=== PATIENT | female | born 1950 | race Caucasian/White ===

== ENCOUNTER 2022-06-05 08:16 | Inpatient (IN) ==
[2022-06-05] MEDS ORDERED: SODIUM CHLORIDE 0.9% 1,000 ML IV STA (08:39)
[2022-06-05] MEDS ORDERED: ONDANSETRON 4 MG/2 ML VIAL IV STA (08:59)
[2022-06-05 09:10] LABS: Glucose,Urine (UA) Negative (Negative); Hyaline Casts,Urine 4 /LPF (0-3); Ketones,Urine Negative (Negative); Mucus,Urine Occasional /LPF (Occasional); Nitrite,Urine Negative (Negative); Protein,Urine Negative (Negative); RBC,Urine 5 /HPF (0-4); Squamous Epithelial Cell,Urine Occasional /HPF (0-10); Urine Appearance Clear (Clear); Urine Color Yellow (Yellow); Urine Specific Gravity 1.015 (1.001-1.035); Urine pH 7.5 (4.5-8.0)
[2022-06-05 09:11] LABS: Bilirubin,Urine Negative (Negative); Blood, Urine Negative (Negative); Urine Urobilinogen 0.2 eU/dL (<2.0)
[2022-06-05 09:14] LABS: Basophils % 0.5 % (0.0-0.8); Eosinophils % 0.3 % (0.00-10.9); Hemoglobin 13.8 GM/DL (12.0-16.0); Immature Granulocytes % 0.7 %; Immature Granulocytes Absolute 0.04 #; Lymphocytes # 1.3 10*3/uL (1.4-4.0); Lymphocytes % 22.5 % (21.3-54.2); Mean Corpuscular HGB Conc 36.3 GM/DL (32-36); Mean Corpuscular Volume 81.7 FL (87-102); Mean Platelet Volume 9.3 FL (9.6-12.0); Monocytes # 0.7 10*3/uL (0.11-0.8); Monocytes % 12.2 % (1.7-12.7); Neutrophils % 63.8 % (38.7-73.9); Platelet Count 370 T/CUMM (130-400); Red Blood Count 4.65 MC/CUMM (3.8-5.5); White Blood Count 5.8 T/CUMM (4-12)
[2022-06-05 09:34] LABS: Albumin 4.1 G/DL (3.4-5.0); Bilirubin,Total 0.6 MG/DL (0.20-1.00); Calcium 9.8 MG/DL (8.5-10.1); Osmolality,Calculated 248.9 MOS/KG (273-304); Potassium 3.5 MMOL/L (3.5-5.1); Total Protein 7.6 G/DL (6.4-8.2)
[2022-06-05] MEDS ORDERED: ONDANSETRON 4 MG/2 ML VIAL IV PRN (10:24)
[2022-06-05] MEDS ORDERED: DEXTROSE 10% 250 ML BAG IV PRN (10:24)
[2022-06-05] MEDS ORDERED: GLUCAGON 1 MG VIAL IM PRN (10:24)
[2022-06-05] MEDS ORDERED: ACETAMINOPHEN 325 MG TABLET PO PRN (10:24)
[2022-06-05] MEDS ORDERED: SODIUM CHLORIDE 0.9% 1,000 ML IV SCH (10:30)
[2022-06-05] MEDS ORDERED: LEVOFLOXACIN INJ 500 MG/100 ML PREMIX IV SCH (11:00)
[2022-06-05] MEDS: ENOXAPARIN 30 MG/0.3 ML SYRINGE SUBCUT SCH (11:25)
[2022-06-05] MEDS: CEFEPIME 1,000 MG in SODIUM CHLORIDE 0.9% 100 ML IV SCH ×2 (16:07→23:42)
[2022-06-05] MEDS: MECLIZINE 25 MG TABLET PO SCH (20:50)
[2022-06-05] MEDS: ATORVASTATIN 10 MG TABLET PO SCH (20:50)
[2022-06-05] MEDS: busPIRone 5 MG TABLET PO SCH (20:50)
[2022-06-06] MEDS: CEFEPIME 1,000 MG in SODIUM CHLORIDE 0.9% 100 ML IV SCH (05:56)
[2022-06-06 06:49] LABS: Basophils % 0.6 % (0.0-0.8); Eosinophils # 0.1 10*3/uL (0.0-0.87); Hematocrit 35.1 VOL% (35.7-47.0); Hemoglobin 12.3 GM/DL (12.0-16.0); Immature Granulocytes % 0.2 %; Immature Granulocytes Absolute 0.01 #; Lymphocytes # 1.5 10*3/uL (1.4-4.0); Lymphocytes % 31.2 % (21.3-54.2); Mean Corpuscular Volume 84.8 FL (87-102); Mean Platelet Volume 9.5 FL (9.6-12.0); Monocytes # 0.7 10*3/uL (0.11-0.8); Platelet Count 290 T/CUMM (130-400); Red Blood Count 4.14 MC/CUMM (3.8-5.5); Red Cell Distribution Width 12.3 % (9.3-17.3); White Blood Count 4.8 T/CUMM (4-12)
[2022-06-06 07:16] LABS: Albumin 3.2 G/DL (3.4-5.0); Bilirubin,Total 0.4 MG/DL (0.20-1.00); Calcium 9.2 MG/DL (8.5-10.1); Osmolality,Calculated 263.7 MOS/KG (273-304); Potassium 3.9 MMOL/L (3.5-5.1); Total Protein 6.4 G/DL (6.4-8.2)
[2022-06-06] MEDS ORDERED: LEVOFLOXACIN INJ 500 MG/100 ML PREMIX IV SCH (09:30)
[2022-06-06] MEDS: MECLIZINE 25 MG TABLET PO SCH ×2 (09:43→20:46)
[2022-06-06] MEDS: busPIRone 5 MG TABLET PO SCH ×2 (09:44→20:46)
[2022-06-06] MEDS: amLODIPine 5 MG TABLET PO SCH (09:44)
[2022-06-06] MEDS: ENOXAPARIN 30 MG/0.3 ML SYRINGE SUBCUT SCH (09:45)
[2022-06-06] MEDS: OMEPRAZOLE ODT 20 MG TABLET PO SCH (14:36)
[2022-06-06] MEDS: POLYETHYLENE GLYCOL POWDER 17 GM PACK PO PRN (14:36)
[2022-06-06] MEDS: ATORVASTATIN 10 MG TABLET PO SCH (20:46)
[2022-06-07] MEDS: POLYETHYLENE GLYCOL POWDER 17 GM PACK PO PRN (04:31)
[2022-06-07 04:41] LABS: Basophils # 0.1 10*3/uL (0.0-0.2); Basophils % 1.3 % (0.0-0.8); Eosinophils # 0.1 10*3/uL (0.0-0.87); Eosinophils % 1.7 % (0.00-10.9); Hematocrit 34.5 VOL% (35.7-47.0); Hemoglobin 11.7 GM/DL (12.0-16.0); Immature Granulocytes % 0.4 %; Immature Granulocytes Absolute 0.02 #; Lymphocytes # 1.8 10*3/uL (1.4-4.0); Lymphocytes % 34.5 % (21.3-54.2); Mean Corpuscular HGB Conc 33.9 GM/DL (32-36); Mean Corpuscular Volume 86.7 FL (87-102); Mean Platelet Volume 9.8 FL (9.6-12.0); Monocytes # 0.7 10*3/uL (0.11-0.8); Monocytes % 12.4 % (1.7-12.7); Neutrophils % 49.7 % (38.7-73.9); Platelet Count 307 T/CUMM (130-400); Red Blood Count 3.98 MC/CUMM (3.8-5.5); Red Cell Distribution Width 12.6 % (9.3-17.3); White Blood Count 5.3 T/CUMM (4-12)
[2022-06-07 05:11] LABS: Calcium 9.6 MG/DL (8.5-10.1); Osmolality,Calculated 266.5 MOS/KG (273-304); Potassium 4.9 MMOL/L (3.5-5.1)
[2022-06-07 08:31] VITALS: BP 135/72
[2022-06-07] MEDS: amLODIPine 5 MG TABLET PO SCH (08:33)
[2022-06-07] MEDS: busPIRone 5 MG TABLET PO SCH (08:33)
[2022-06-07] MEDS: OMEPRAZOLE ODT 20 MG TABLET PO SCH (08:33)
[2022-06-07] MEDS: MECLIZINE 25 MG TABLET PO SCH (08:33)
[2022-06-07] MEDS: ENOXAPARIN 30 MG/0.3 ML SYRINGE SUBCUT SCH (08:35)
== END 2022-06-07 11:51 | disposition home or self-care (01) | DRG 690 ==
LOC: N.ED 08:16 → N.EDINP 10:24 → SUATTDRO 10:24 → N.5E 11:20
PROVIDERS: ADMIT Internal Medicine; ATTEND Internal Medicine